=== PATIENT | female | born 1965 | race Caucasian/White ===

== ENCOUNTER 2017-04-11 10:47 | Emergency (ER) | payer OTHER ==
[~2017-04-11] VITALS: Ht 165.1 cm; Wt 74.4 kg
--- NOTE | 2017-04-11 11:13 | RAD ---
Left hand radiograph 04/11/2017 12:59 PM Indication: Arthritis with swelling and redness of the left second DIP joint. Comparison: None available Technique: 3 views of the left hand are provided. Findings: There is no acute fracture or dislocation. There is joint space narrowing involving the second distal interphalangeal joint with subcortical sclerosis. No osseous erosions are identified. There is associated soft tissue swelling. No subcutaneous gas. There is periarticular erosive changes at the third DIP joint with subcortical sclerosis and endplate irregularity suspicious for erosive osteoarthrosis. Bone mineralization is within normal limits. There is moderate osteoarthrosis of the first carpometacarpal articulation. Impression: 1. Mild osteoarthrosis of the second distal interphalangeal joint. No acute fracture or dislocation. 2. 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 3. Moderate osteoarthrosis of the first carpometacarpal articulation.
--- NOTE | 2017-04-11 11:35 | PHYS DOC ---
Past History Past Medical History: Anxiety Past Surgical History: Other Alcohol Use: Occasionally Drug Use: None Adult General Chief Complaint Chief Complaint: FINGER problem HPI HPI Patient is a 51-year-old female who is in town from [place] to help her mother, presents with swelling and pain of her left index finger distally. She does not know of any injury to the finger. A while back, she had swelling and pain of the same finger, slightly more proximally, that went down but now the swelling and pain is between her DIP joint and her nailbed. Sometimes it drains fluid that is clear but "stringy". It is very painful. She has not really taken anything for it. She has not seen any doctor about it. Review of Systems Review of Systems Constitutional: Denies fever or chills [] Musculoskeletal: Denies swelling or pain of other joints Allergies Allergies Allergies Coded Allergies Type Severity Reaction Last Updated Verified latex Allergy Unknown 04/11/17 Yes Physical Exam Physical Exam Constitutional: Well developed, well nourished, no acute distress, non-toxic appearance. Alert, ambulatory, warm and dry. HENT: Normocephalic, atraumatic, bilateral external ears normal, nose normal. [ ] Eyes: conjunctiva normal, no discharge. [] Neck: Normal range of motion, no stridor. [] Skin: Warm, dry, no erythema, no rash. [] Extremities: Left hand: Index finger has an area of redness and swelling on the dorsal aspect starting at the DIP joint and extending to the nailbed. It does not appear to be a paronychia. It is red and tender and fluctuant, I don't believe it is an abscess, it appears to be continuous with the joint and I believe it is likely joint fluid. There is no surrounding cellulitis. It is not particularly warm. There is also deformity of the middle finger DIP joint consistent with long-standing arthritis type deformity. Other fingers and joints appear relatively uninvolved. Neurologic: Alert and oriented X 3, normal motor function, no focal deficits noted. [] Current Patient Data Vital Signs Vital Signs Date Time Temp Pulse Resp B/P (MAP) Pulse Ox O2 Delivery O2 Flow Rate FiO2 04/11/17 10:50 98.0 69 18 96 Room Air EKG EKG [] Radiology/Procedures Radiology/Procedures Three-view x-ray of the left hand read by the radiologist.[] Impression: 1. Mild osteoarthrosis of the second distal interphalangeal joint. No acute fracture or dislocation. 2. 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 3. Moderate osteoarthrosis of the first carpometacarpal articulation. Course & Med Decision Making Course & Med Decision Making Pertinent Labs and Imaging studies reviewed. (See chart for details) 51-year-old female presents with non-acute swelling and pain of the left index finger DIP joint. I believe it is a joint effusion consistent with osteoarthritis of that joint. I don't believe it is an abscess or something that would benefit from draining. I don't believe the joint is infected, just inflamed and having joint fluid accumulated. We will treat with NSAIDs and heat , I recommended follow-up with a calender roll operator. See instructions for plan. [] Dragon Disclaimer Dragon Disclaimer This electronic medical record was generated, in whole or in part, using a voice recognition dictation system. 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 I would not recommend draining it or trying to squeeze the fluid out, because it might get infected. I recommend using an anti-inflammatory arthritis medication as prescribed. Try [id number] naproxen every 12 hours. Apply heating pad 4-6 times a day for 15-20 minutes to encourage blood flow to that area which might help the swelling go down. If you want to see a specialist, I would start with a calender roll operator, who is a specialist in arthritis problems. Your hand x-ray does not look suspicious for rheumatoid arthritis, but calender roll operator take care of other arthritis as well. Problem Qualifiers NEHEMIAS OWENS MD Apr 11, 2017 11:35
[2017-04-11 11:49] VITALS: BP 123/81
== END 2017-04-11 11:49 | disposition home or self-care (01) ==
LOC: ER 10:47
DX: M19.042 Primary osteoarthritis, left hand (principal); M25.442 Effusion, left hand; F41.9 Anxiety disorder, unspecified; Z91.040 Latex allergy status
CPT/HCPCS: 73130; 99284

== ENCOUNTER 2019-03-07 07:46 | Emergency (ER) | payer OTHER ==
[~2019-03-07] VITALS: Ht 165.1 cm; Wt 68.0 kg
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
--- NOTE | 2019-03-07 08:49 | RAD ---
EXAM: 1. RIGHT SHOULDER 3 VIEWS. 2. RIGHT ELBOW 3 VIEWS. HISTORY: Fall with right shoulder and elbow pain. COMPARISON: None. FINDINGS: No fractures are identified at the right shoulder. There is a small osteophyte along the inferior aspect of the humeral head. Glenohumeral alignment is maintained. Acromioclavicular joint spaces and alignment are maintained. No fractures are appreciated at the right elbow. Joint spaces and alignment are maintained. There is no clear joint effusion. IMPRESSION: 1. No fracture or malalignment. 2. Mild right glenohumeral osteoarthritis. Electronically signed by: Joni Coleman MD (03/07/2019 8:46 AM) [facility]
--- NOTE | 2019-03-07 08:49 | RAD ---
EXAM: 1. RIGHT SHOULDER 3 VIEWS. 2. RIGHT ELBOW 3 VIEWS. HISTORY: Fall with right shoulder and elbow pain. COMPARISON: None. FINDINGS: No fractures are identified at the right shoulder. There is a small osteophyte along the inferior aspect of the humeral head. Glenohumeral alignment is maintained. Acromioclavicular joint spaces and alignment are maintained. No fractures are appreciated at the right elbow. Joint spaces and alignment are maintained. There is no clear joint effusion. IMPRESSION: 1. No fracture or malalignment. 2. Mild right glenohumeral osteoarthritis. Electronically signed by: Joni Coleman MD (03/07/2019 8:46 AM) [facility]
[2019-03-07] MEDS ORDERED: ORPHENADRINE CITRATE 60 MG/2 ML VIAL. IV ONE (09:00)
[2019-03-07] MEDS ORDERED: KETOROLAC 15 MG/ML VIAL. IVP ONE (09:00)
[2019-03-07] MEDS ORDERED: ORPH-16 PO (09:05)
[2019-03-07] MEDS ORDERED: HYDR-3165 PO (09:05)
[2019-03-07 09:21] VITALS: BP 123/98
== END 2019-03-07 09:24 | disposition home or self-care (01) ==
LOC: ER 07:46
DX: S46.911A Strain of unspecified muscle, fascia and tendon at shoulder and upper arm level, right arm, initial encounter (principal); W01.0XXA Fall on same level from slipping, tripping and stumbling without subsequent striking against object, initial encounter; Y93.89 Activity, other specified; Y92.89 Other specified places as the place of occurrence of the external cause; Y99.8 Other external cause status
CPT/HCPCS: 73030; 73080; 96374; 96375; 99284; J1885; J2360; J3010